=== PATIENT | female | born 1940 | race Caucasian/White ===

== ENCOUNTER → 2017-03-21 | Outpatient (CLI) | payer MEDICARE, BC, OTHER ==
[~2017-03-21] MED LIST: ESTR1DIS3 TD; IBUP60TA PO; KLOR20PO12 GT; LASI20TA PO; PROTPAK; VERA240T14 PO; [UNRECOGNIZED DRUG - CODE]; [UNRECOGNIZED DRUG - CODE] PO; [UNRECOGNIZED DRUG - OTHER]
--- NOTE | 2017-03-21 15:07 | REPMRS ---
Patient History The patient states she had a clinical breast exam in February 2017.Patient is postmenopausal. Family history of breast cancer in sister at age 61, breast cancer in paternal grandmother at age 50 or over, and unknown cancer in maternal grandmother at age 50 or over. Benign excisional biopsy of the right breast. Taking estrogen for 20 years. Taking progesterone for 20 years. Digital Mammo Screening Bilat: March 21, 2017 - Exam #: [id number] Bilateral CC and MLO view(s) were taken. Technologist: Anu Kong, Technologist Prior study comparison: March 18, 2016, bilateral digital mammo screening bilat performed at [facility]. February 25, 2015, bilateral digital mammo screening bilat performed at [facility]. February 13, 2014, bilateral bilat screen digital mammo, performed at [facility] ([facility]). FINDINGS: There are scattered fibroglandular densities. There has been no change in the appearance of the mammogram from the prior studies. There is a mild amount of scattered fibroglandular density which is fairly symmetric. There is no interval development of dominant mass, architectural distortion, or clustered microcalcification suggestive of malignancy. ASSESSMENT: BI-RADS/ACR category 1 mammogram. Negative. Recommendation Routine screening mammogram in 1 year (for women over age 40). This mammogram was interpreted with the aid of an FDA-approved computer-aided dectection system. Electronically Signed By: Joel Whittington MD 03/21/17 4831
== END ==
LOC: M RAD 14:38
PROVIDERS: ATTEND Obstetrics & Gynecology
DX: Z12.31 Encounter for screening mammogram for malignant neoplasm of breast (principal); Z78.0 Asymptomatic menopausal state; Z80.3 Family history of malignant neoplasm of breast; Z92.0 Personal history of contraception

== ENCOUNTER → 2018-07-28 | Outpatient (CLI) | payer MEDICARE, BC, OTHER | LOC: M RAD 13:54 | DX: Z12.31 Encounter for screening mammogram for malignant neoplasm of breast (principal) | CPT/HCPCS: 77067 ==

== ENCOUNTER → 2019-08-03 | Outpatient (CLI) | payer MEDICARE, BC, OTHER ==
[~2019-08-03] MED LIST changes: +IBUP600T42 PO; -IBUP60TA PO; -LASI20TA PO; +LASI20TA3 PO; -VERA240T14 PO; +VERA240T3 PO
--- NOTE | 2019-08-03 14:56 | REPMRS ---
Patient History The patient states she had a clinical breast exam in February 2019. Family history of breast cancer at age 61 in sister, breast cancer at age 50 or over in paternal grandmother, unknown cancer at age 50 or over in maternal grandmother. Benign excisional biopsy of the right breast. Taking estrogen for 20 years. Taking progesterone for 20 years. Digital Mammo Screening Bilat: August 03, 2019 - Exam #: [id number] Bilateral CC and MLO view(s) were taken. Technologist: Anu Kong, Technologist Prior study comparison: July 28, 2018, bilateral digital mammo screening bilat performed at [facility]. March 21, 2017, bilateral digital mammo screening bilat performed at [facility]. March 18, 2016, bilateral digital mammo screening bilat performed at [facility]. FINDINGS: There are scattered fibroglandular densities. There are disbursed calcifications again noted bilaterally. There has been no change in the appearance of the mammogram from the prior studies. There is a mild amount of scattered fibroglandular density which is fairly symmetric. There is no interval development of dominant mass, architectural distortion, or grouped microcalcification suggestive of malignancy. 3-D tomosynthesis shows no additional findings. Assessment: BI-RADS/ACR category 2 mammogram. Benign Findings. Recommendation Routine screening mammogram of both breasts in 1 year (for women over age 40). This patient's Lifetime Breast Cancer Risk is estimated at 6.2 %. This mammogram was interpreted with the aid of an FDA-approved computer-aided dectection system. Electronically Signed By: Joel Whittington MD 08/03/19 0952
== END ==
LOC: M RAD 12:44
PROVIDERS: ATTEND Obstetrics & Gynecology
DX: Z12.31 Encounter for screening mammogram for malignant neoplasm of breast (principal); Z80.3 Family history of malignant neoplasm of breast; Z79.818 Long term (current) use of other agents affecting estrogen receptors and estrogen levels

== ENCOUNTER → 2020-04-14 | Outpatient (CLI) | payer MEDICARE, BC, OTHER ==
[~2020-04-14] MED LIST changes: +ELIQ5TAB PO; +NOXI1TAB PO; +OCUV1CAP4 PO; +PRAV40TA2 PO; +VERA240C PO
== END ==
LOC: M LABSMTC 13:49
PROVIDERS: ATTEND Anesthesiology
DX: Z03.818 Encounter for observation for suspected exposure to other biological agents ruled out (principal); Z11.59 Encounter for screening for other viral diseases
CPT/HCPCS: 87486; 87581; 87633; 87798; C9803

== ENCOUNTER 2020-04-16 07:54 | Day surgery (SDC) | payer MEDICARE, BC, OTHER ==
[~2020-04-16] VITALS: Ht 154.9 cm; Wt 55.8 kg
[~2020-04-16 07:54] MED LIST changes: +NS 1,000 ML IV ONE
--- NOTE | 2020-04-16 08:59 | ROOR ---
Patient Name: Angela Breaux Procedure Date: 04/16/2020 8:37 AM Date of : 1940 Age: 79 Room: [facility] Gender: Female Note Status: Finalized Procedure: Upper Endoscopy + Biopsies Indications: Lower abdominal pain, Weight loss Providers: Brian Manriquez MD Referring MD: Jocy Mcguire DO Requesting Provider: Medicines: Monitored Anesthesia Care Complications: No immediate complications. Procedure: Pre-Anesthesia Assessment: - The heart rate, respiratory rate, oxygen saturations, blood pressure, adequacy of pulmonary ventilation, and response to care were monitored throughout the procedure. The Endoscope was introduced through the mouth, and advanced to the second part of duodenum. The upper GI endoscopy was accomplished without difficulty. The patient tolerated the procedure well. Findings: The Z-line was variable and was found 40 cm from the incisors. Multiple biopsies were obtained with cold forceps for evaluation to rule out Bills's Esophagus randomly at the gastroesophageal junction. A medium-sized hiatal hernia was present. No other significant abnormalities were identified in a careful examination of the stomach. Biopsies were taken with a cold forceps in the gastric antrum for Helicobacter pylori testing. The exam of the duodenum was otherwise normal. Biopsies for histology were taken with a cold forceps in the first portion of the duodenum for evaluation of celiac disease. The exam was otherwise without abnormality. Impression: - Z-line variable, 40 cm from the incisors. - Medium-sized hiatal hernia. - The examination was otherwise normal. - Multiple biopsies were obtained at the gastroesophageal junction. - Biopsies were taken with a cold forceps for Helicobacter pylori testing. - Biopsies were taken with a cold forceps for evaluation of celiac disease. - The examination was otherwise normal. Recommendation: - Patient has a contact number available for emergencies. The signs and symptoms of potential delayed complications were discussed with the patient. Return to normal activities tomorrow. Written discharge instructions were provided to the patient. - High fiber diet. - Discharge patient to home. - Continue present medications. - Await pathology results. - Telephone GI clinic for pathology results in 1 week. - Return to referring physician. - The findings and recommendations were discussed with the patient's family. Brian Manriquez MD Brian Manriquez MD 04/16/2020 8:58:36 AM Electronically signed by Brian Manriquez MD Number of Addenda: 0 Note Initiated On: 04/16/2020 8:37 AM Estimated Blood Loss: Estimated blood loss: none.
[2020-04-16] MEDS ORDERED: propofoL 200 MG/20 ML VIAL As Ordered ONE (09:09)
[2020-04-16] MEDS ORDERED: LIDOCAINE 2% 100MG/5ML SDV (FOR ANES.) As Ordered ONE (09:09)
--- NOTE | 2020-04-16 09:18 | ROOR ---
Patient Name: Angela Breaux Procedure Date: 04/16/2020 8:38 AM Date of : 1940 Age: 79 Room: [facility] Gender: Female Note Status: Finalized Procedure: Total Colonoscopy to Cecum Indications: Lower abdominal pain, Weight loss Providers: Brian Manriquez MD Referring MD: Jocy Mcguire DO Requesting Provider: Medicines: Monitored Anesthesia Care Complications: No immediate complications. Procedure: Pre-Anesthesia Assessment: - The heart rate, respiratory rate, oxygen saturations, blood pressure, adequacy of pulmonary ventilation, and response to care were monitored throughout the procedure. The Colonoscope was introduced through the anus and advanced to the cecum, identified by appendiceal orifice and ileocecal valve. The colonoscopy was performed without difficulty. The patient tolerated the procedure well. The quality of the bowel preparation was excellent. Findings: The perianal and digital rectal examinations were normal. Non-bleeding internal hemorrhoids were found during retroflexion. The hemorrhoids were small and Grade I (internal hemorrhoids that do not prolapse). Multiple small and large-mouthed diverticula were found in the recto-sigmoid colon, sigmoid colon and descending colon. The exam was otherwise without abnormality on direct and retroflexion views. Impression: - Non-bleeding internal hemorrhoids. - Diverticulosis in the recto-sigmoid colon, in the sigmoid colon and in the descending colon. - The examination was otherwise normal on direct and retroflexion views. - No specimens collected. - The exam was otherwise normal to the cecum. Recommendation: - Patient has a contact number available for emergencies. The signs and symptoms of potential delayed complications were discussed with the patient. Return to normal activities tomorrow. Written discharge instructions were provided to the patient. - High fiber diet. - Discharge patient to home. - Continue present medications. - Repeat colonoscopy for symptoms only. - Return to referring physician. - The findings and recommendations were discussed with the patient's family. Brian Manriquez MD Brian Manriquez MD 04/16/2020 9:18:00 AM Electronically signed by Brian Manriquez MD Number of Addenda: 0 Note Initiated On: 04/16/2020 8:38 AM Estimated Blood Loss: Estimated blood loss: none.
[2020-04-16 09:40] VITALS: BP 124/58
== END 2020-04-16 09:55 | disposition home or self-care (01) ==
LOC: M OPP 07:54
PROVIDERS: ATTEND Internal Medicine Gastroenterology
DX: K57.30 Diverticulosis of large intestine without perforation or abscess without bleeding (principal); K64.0 First degree hemorrhoids; R10.30 Lower abdominal pain, unspecified; R63.4 Abnormal weight loss; K22.8 Other specified diseases of esophagus; K44.9 Diaphragmatic hernia without obstruction or gangrene; Z79.899 Other long term (current) drug therapy; Z87.891 Personal history of nicotine dependence

== ENCOUNTER → 2020-08-15 | Outpatient (CLI) | payer MEDICARE, BC ==
[~2020-08-15] MED LIST changes: -NS 1,000 ML IV ONE
--- NOTE | 2020-08-15 15:46 | REPMRS ---
Patient History The patient states she had a clinical breast exam in May 2020. Family history of breast cancer at age 61 in sister, breast cancer at age 50 or over in paternal grandmother, unknown cancer at age 50 or over in maternal grandmother. Benign excisional biopsy of the right breast. Taking estrogen for 20 years. Taking progesterone for 20 years. 3D TOMOSYNTHESIS WAS PERFORMED. The [facility] lifetime risk for breast cancer is 5.4%. [employer] [facility]. Digital Woman Screen Mammo: August 15, 2020 - Exam #: [id number] Bilateral CC and MLO view(s) were taken. Technologist: Anu Kong, Technologist Prior study comparison: August 03, 2019, bilateral digital mammo screening bilat, performed at [facility]. July 28, 2018, bilateral digital mammo screening bilat, performed at [facility]. FINDINGS: The breast tissue is heterogeneously dense. This may lower the sensitivity of mammography. There has been no change in the appearance of the mammogram from the prior studies. There is a moderate amount of residual fibroglandular tissue which is fairly symmetric. There is no interval development of dominant mass, areas of architectural distortion, or clustered microcalcification typical of malignancy. Assessment: BI-RADS/ACR category 1 mammogram. Negative Mammogram. Recommendation Routine screening mammogram in 1 year (for women over age 40). This mammogram was interpreted with the aid of an FDA-approved computer-aided dectection system. Electronically Signed By: Andrew Bowie MD 08/15/20 [id number]
== END ==
LOC: M WHC 14:34
PROVIDERS: ATTEND Obstetrics & Gynecology
DX: Z12.31 Encounter for screening mammogram for malignant neoplasm of breast (principal); Z80.3 Family history of malignant neoplasm of breast

== ENCOUNTER → 2021-10-22 | Outpatient (CLI) | payer MEDICARE, BC, OTHER ==
[~2021-10-22] MED LIST changes: -VERA240T3 PO; +VERA240T64 PO
--- NOTE | 2021-10-22 13:34 | REPMRS ---
Patient History The patient states she had a clinical breast exam in 2020. Family history of breast cancer at age 61 in sister, breast cancer at age 50 or over in paternal grandmother, unknown cancer at age 50 or over in maternal grandmother. Benign excisional biopsy of the right breast. Taking estrogen for 20 years. Taking progesterone for 20 years. No breast complaints today Patient signed the MRS sheet 1st vaccine 12/19-Moderna 2nd vaccine 01/21 3rd vaccine 10/12-right arm-patient doesn't remember which arm the first 2 were in [place] on PACS Patient Identification Verified Digital Woman Screen Mammo: October 22, 2021 - Exam #: [id number] Bilateral CC and MLO view(s) were taken. Technologist: Anu Kong, Technologist Prior study comparison: August 15, 2020, bilateral digital woman screen mammo performed at [facility]. August 03, 2019, bilateral digital mammo screening bilat, performed at [facility]. FINDINGS: The breast tissue is heterogeneously dense. This may lower the sensitivity of mammography. Screening. Digital screening (2D) mammography was performed bilaterally in the CC and MLO projections. Additionally, breast tomosynthesis (3D mammography) was performed bilaterally in the CC and MLO projections. Todays exam was compared to the prior exam/exams. By history, the patient has no complaints of a palpable breast abnormality or other significant breast complaints. The breasts are unchanged in size and shape.Once again, dense heterogenous fibroglandular elements are seen bilaterally in a stable appearing pattern but to such a degree that the sensitivity of the mammogram in detecting cancer is decreased. There are no roberth-soft tissue densities or spiculated masses. There is no internal architectural distortion. Calcifications are again seen in the breast/breasts. Some of these are in groups but no one group appears more suspicious than any other. There are no suspicious roberth-calcific clusters. Skin thickening or nipple retraction is not present. IMPRESSION: BI-RADS Category 2- Benign Findings. There is no evidence of malignant alteration of the breasts. Followup examination recommended in one year. The Volpara volumetric breast density category is C, the breasts are heterogenously dense which may obscure small masses. This mammogram was read with the assistance of Alloptic,an FDA approved computer aided detection system for mammography. The lifetime Tyrer-Cuzick score is 4.6 % Due to the density of the breasts or Tyrer Cuzick score of 20% or greater, MRI/whole breast screening ultrasound is warranted. Negative x-ray reports should not delay surgical consultation if a dominant or clinically suspicious mass is present. Not all breast cancers can be identified by mammography. Therefore, we recommend that you continue to perform regular breast self-examination and physical examination and then promptly contact your physician of any concerns or changes. Adenosis and dense breasts may obscure an underlying neoplasm. Assessment: BI-RADS/ACR category 2 mammogram. Benign Findings. Recommendation Routine screening mammogram of both breasts in 1 year. Electronically Signed By: Vidal Light DO 10/22/21 [id number]
== END ==
LOC: M WHC 12:52
PROVIDERS: ATTEND Obstetrics & Gynecology
DX: Z12.31 Encounter for screening mammogram for malignant neoplasm of breast (principal); Z80.3 Family history of malignant neoplasm of breast